=== PATIENT | male | born 1960 | race Two or more races ===

== ENCOUNTER 2020-01-14 22:43 | Inpatient (IN) | payer OTHER ==
[~2020-01-14] VITALS: Ht 182.9 cm; Wt 86.2 kg
[~2020-01-14 22:43] MED LIST: GRALISE600 MG; NABUMETONE500 MG PO; PERCOCET 5/3251 TAB PO
--- NOTE | 2020-01-14 23:10 | NUR ---
PTE RECIBIDO ALERTA Y ORIENTADO X 3 ESFERAS EN SILLON DE SUDHEER Y QUIEN ILSA WYNN HISTORIAL COMPLETO,REFIERE MAREOS DESDE HACE 3 BOND INNA EN EL ZARINA DE HOY SE MAREO,PERDIO EL CONOCIMIENTO Y SE CALLO,PRESENTA PROTUBERANCIA EN LADO LT DE LA FRENTE,ABRASION EN DEDO DE MANO LT Y REFIERE DOLOR EN AARON DE [place],SE REALIZA EKG SE MUESTRA A DR NOWAK QUIEN INDICA UBICARLO EN AREA DE OBSERVACION.
--- NOTE | 2020-01-14 23:41 | NUR ---
PACIENTE ALERTA Y ORIENTADO EN MANDA TERRI ESFERAS, ES ORIENTADO SOBRE ORDENES MEDICAS, REFIERE ENTENDER. SE COLECTAN MUESTRAS DE CHRISTINA, SE CANALIZA VENA Y SE ADMINISTRAN MEDICAMENTOS. RADIOGRAFIA Y CT SCAN PENDIENTES.
--- NOTE | 2020-01-15 08:20 | NUR ---
SE RECIBE PTE DEL TURNO ANTERIOR ALERTA Y ORIENTADO X3, EN LEXIE NIVEL MAS BAJO CON BARANDAS ELEVADAS POR 3 POR PRECAUCION. PRESENTA BUEN PATRON RESPIRATORIO Y PIEL TIBIA AL TACTO CON AREA DE VENOPUNCION PATENTE Y SARAH DE EDEMA Y/O ENROJECIMIENTO RECIBIENDO 0.9% NSS AT 120 ML/HR. PTE PENDIENTE CONSULTA CON MEDICO QUE ACEPTE UTM.
== END 2020-01-19 01:48 | disposition designated cancer center or children's hospital (05) | DRG 101 ==
LOC: ER 22:43 → MEDJ 01-15 12:05 → SEC-K 01-15 12:05 → MEDJ 01-15 13:23
PROVIDERS: ADMIT Internal Medicine; ATTEND Internal Medicine
PROC: BW38ZZZ Magnetic Resonance Imaging (MRI) of Head (ICD-10-PCS; principal; 2020-01-15)
PROC: B24BZZZ Ultrasonography of Heart with Aorta (ICD-10-PCS; 2020-01-15)
PROC: B345ZZZ Ultrasonography of Bilateral Common Carotid Arteries (ICD-10-PCS; 2020-01-15)
PROC: BW28ZZZ Computerized Tomography (CT Scan) of Head (ICD-10-PCS; 2020-01-15)
DX: G40.909 Epilepsy, unspecified, not intractable, without status epilepticus (principal); R55 Syncope and collapse; R42 Dizziness and giddiness; Z20.828 Contact with and (suspected) exposure to other viral communicable diseases
CPT/HCPCS: 70544

== ENCOUNTER → 2020-10-06 11:34 | Outpatient (CLI) | payer OTHER | END | disposition home or self-care (01) | LOC: LAB 11:34 | PROVIDERS: ATTEND General Practice | DX: Z11.3 Encounter for screening for infections with a predominantly sexual mode of transmission (principal); Z11.4 Encounter for screening for human immunodeficiency virus [HIV]; Z12.11 Encounter for screening for malignant neoplasm of colon; Z12.5 Encounter for screening for malignant neoplasm of prostate; Z13.29 Encounter for screening for other suspected endocrine disorder; Z13.228 Encounter for screening for other metabolic disorders ==

== ENCOUNTER 2020-10-07 06:11 | Outpatient (CLI) | payer OTHER | END 2020-10-07 06:17 | disposition home or self-care (01) | LOC: LAB 06:11 | PROVIDERS: ATTEND General Practice | DX: E55.9 Vitamin D deficiency, unspecified (principal); R73.03 Prediabetes; Z11.3 Encounter for screening for infections with a predominantly sexual mode of transmission; Z11.4 Encounter for screening for human immunodeficiency virus [HIV]; Z12.11 Encounter for screening for malignant neoplasm of colon; Z12.5 Encounter for screening for malignant neoplasm of prostate; Z13.29 Encounter for screening for other suspected endocrine disorder; Z13.228 Encounter for screening for other metabolic disorders ==

== ENCOUNTER 2020-10-13 07:19 | Outpatient (CLI) | payer OTHER | END 2020-10-13 07:33 | disposition home or self-care (01) | LOC: RAD 07:19 → MAMO-SONO 08:45 | PROVIDERS: ATTEND General Practice | DX: R97.20 Elevated prostate specific antigen [PSA] (principal); Z11.4 Encounter for screening for human immunodeficiency virus [HIV]; Z12.11 Encounter for screening for malignant neoplasm of colon; Z95.0 Presence of cardiac pacemaker; I49.9 Cardiac arrhythmia, unspecified; R05 Cough; Z11.3 Encounter for screening for infections with a predominantly sexual mode of transmission; Z12.5 Encounter for screening for malignant neoplasm of prostate; Z13.29 Encounter for screening for other suspected endocrine disorder; Z13.228 Encounter for screening for other metabolic disorders ==